=== PATIENT | female | born 1990 | race Caucasian/White ===

== ENCOUNTER 2016-12-26 11:09 | Emergency (ER) | payer OTHER ==
--- NOTE | 2016-12-26 13:34 | ED ---
GI/ HPI - HPI Summary HPI Summary: Patient presents vaginal bleeding that began yesterday without known cause. She took a urine test previously and believes she is approximately 7 weeks . She has noticed some clots in the blood and some cramping and lower back pain. No N/V/D, urinary symptoms, fevers or anorexia. She has two previous pregnancies that were terminated. - History of Current Complaint Chief Complaint: EDVaginalBleeding Time Seen by Provider: 12/26/16 13:15 Stated Complaint: 7 WEEKS PREG SPOTTING , Hx Obtained From: Patient Onset/Duration: Started Days Ago - 1, Atraumatic, Still Present Timing: Constant Severity: Mild Current Severity: Mild Vaginal Bleeding Description: Bright Red Pain Intensity: 3 Location of Pain: Suprapubic Additional Location for Females: Uterus Pain Characteristics: Cramping Pain Radiates to: Back Associated Signs and Symptoms: Positive: Back Pain, Discharge. Negative: Pallor , Dizziness, Weakness, Syncope Additional Signs & Symptoms: Positive: Vaginal Bleeding, Aggravating Factor(s): Nothing Alleviating Factor(s): Nothing - Allergy/Home Medications Allergies/Adverse Reactions: Allergies Allergy/AdvReac Type Severity Reaction Status Date / Time AMOXICILLIN Allergy Hives Uncoded 12/26/16 11:12 PENICILLIN Allergy Unknown Uncoded 12/26/16 11:12 Reaction Details PMH/Surg Hx/FS Hx/Imm Hx Previously Healthy: Yes Infectious Disease History: No Infectious Disease History: Denies: Traveled Outside the [place] in Last 30 Days - Family History Known Family History: Positive: None - Social History Occupation: Employed Part-time Lives: With Family Alcohol Use: Stopped when she knew she was Substance Use Type: Reports: None Smoking Status (MU): Former Smoker Review of Systems Negative: Fever Positive: Abdominal Pain. Negative: Vomiting, Diarrhea, Nausea Positive: no symptoms reported Negative: Weakness All Other Systems Reviewed And Are Negative: Yes Physical Exam Triage Information Reviewed: Yes Vital Signs On Initial Exam: Initial Vitals Temp Pulse Resp BP Pulse Ox 97.9 F 81 15 122/52 100 12/26/16 11:12 12/26/16 11:12 12/26/16 11:12 12/26/16 11:12 12/26/16 11:12 Vital Signs Reviewed: Yes Appearance: Positive: Well-Appearing, No Pain Distress, Obese Skin: Positive: Warm, Skin Color Reflects Adequate Perfusion, Dry, Soft Head/Face: Positive: Normal Head/Face Inspection Eyes: Positive: EOMI, RAMESH, Conjunctiva Clear ENT: Positive: Hearing grossly normal Neck: Positive: Supple, Nontender Respiratory/Lung Sounds: Positive: Clear to Auscultation, Breath Sounds Present Cardiovascular: Positive: RRR Abdomen Description: Positive: Soft. Negative: Nontender - suprapubic discomfort to palpation, CVA Tenderness (R), CVA Tenderness (L), Distended, Guarding Bowel Sounds: Positive: Present Musculoskeletal: Negative: Edema Left, Edema Right Neurological: Positive: Sensory/Motor Intact, Alert, Oriented to Person Place, Time, NV Bundle Intact Distally, Normal Gait Psychiatric: Positive: Affect/Mood Appropriate AVPU Assessment: Alert - Frank Coma Scale Coma Scale Total: 14 Diagnostics - Vital Signs Vital Signs Temp Pulse Resp BP Pulse Ox 12/26/16 11:12 97.9 F 81 15 122/52 100 - Laboratory Result Diagrams: 12/26/16 13:30 Lab Statement: Any lab studies that have been ordered have been reviewed, and results considered in the medical decision making process. - Ultrasound No standard instances Ultrasound Interpretation: Positive (See Comments) Ultrasound Interpretation Completed By: Radiologist - Gestational sac corresponding to 5 week, 1 day GIGU Course/Dx - Diagnoses Differential Diagnoses - Female: Ectopic , Incomplete , , Pelvic Inflammatory Disease, Placenta Abruption, Retained Foreign Body, Threatened , Urinary Tract Infection Provider Diagnoses: Threatened Discharge - Discharge Plan Condition: Stable Disposition: HOME Patient Education Materials: Threatened Miscarriage (ED) Referrals: Alma Kinsey MD [Primary Care Provider] - Additional Instructions: Please follow-up with Dr. Kinsey in 2-3 days for repeat blood work and evaluation. Drink extra fluids. Return to the emergency department if symptoms worsen.
[2016-12-26 13:40] LABS: Hematocrit 40 % (35-47); Hemoglobin 13.3 g/dl (12.0-16.0); Mean Corpuscular HGB Conc 33 g/dl (31-36); Mean Corpuscular Hemoglobin 30 pg (27-31); Mean Corpuscular Volume 92 fL (80-97); Mean Platelet Volume 7 um3 (7.4-10.4); Red Blood Count 4.39 10^6/ul (4.0-5.4); Red Cell Distribution Width 13 % (10.5-15); White Blood Count 6.2 10^3/ul (3.5-10.8)
--- NOTE | 2016-12-26 14:32 | RAD ---
Indication: with vaginal bleeding. Real-time sonography of the was performed. There appears to be thickening of the endometrium with suggestion of a intrauterine gestational sac with a mean sac size of 6 mm. This corresponds to gestational age of 5 weeks 1 day. A structure resembling a pole is not definitively identified although a structure resembling the yolk sac is present. No movement or heart activity is noted. Right ovary measures 3.1 x 1.8 x 2.8 cm. Left ovary measures 2.1 x 1.1 x 2.4 cm. Doppler interrogation demonstrates flow in both ovaries. Likely corpus luteum cyst is noted in the right. IMPRESSION: Thickened endometrium with suggestion of intrauterine gestational sac with a mean diameter of 6 mm corresponding to gestational age of 5 weeks 1 day. A structure resembling a yolk sac is identified. This may be due to early or blighted ovum. Clinical correlation and follow-up with serial quantitative hCG is suggested.
[2016-12-26 16:00] VITALS: BP 120/58
== END 2016-12-26 15:10 | disposition home or self-care (01) ==
LOC: ED 11:09
DX: O20.0 Threatened abortion (principal); Z3A.01 Less than 8 weeks gestation of pregnancy; Z87.891 Personal history of nicotine dependence
CPT/HCPCS: 36415; 76817; 84702; 85025; 86900; 86901; 99282

== ENCOUNTER 2017-05-03 22:28 | Emergency (ER) | payer OTHER ==
[2017-05-03 22:32] VITALS: BP 130/76
--- NOTE | 2017-05-04 00:01 | ED ---
Back Pain - HPI Summary HPI Summary: 27F presents with back pain today s/p falling down stairs. She states she struck the left side of her back. She is still able to ambulate with pain. She denies any pain or numbness or tingling down the leg. She denies any other injury. She denies any loss of bowel or bladder or saddle anaesthesia. She took a dose of aleve for pain which helped. She states she is having muscle spasms of her back. She denies any fever. She denies any history of back pain. - History of Current Complaint Chief Complaint: EDBackInjuryPain Stated Complaint: BACK PAIN Time Seen by Provider: 05/03/17 23:58 Pain Intensity: 6 - Allergies/Home Medications Allergies/Adverse Reactions: Allergies Allergy/AdvReac Type Severity Reaction Status Date / Time AMOXICILLIN Allergy Hives Uncoded 12/26/16 11:12 PENICILLIN Allergy Unknown Uncoded 12/26/16 11:12 Reaction Details PMH/Surg Hx/FS Hx/Imm Hx Endocrine/Hematology History: Denies: Hx Anticoagulant Therapy Cardiovascular History: Denies: Hx Hypertension Infectious Disease History: No Infectious Disease History: Denies: Traveled Outside the [place] in Last 30 Days - Family History Known Family History: Positive: None Negative: Cardiac Disease - Social History Alcohol Use: Stopped when she knew she was Substance Use Type: Reports: None Smoking Status (MU): Former Smoker Review of Systems Negative: Fever Negative: Chest Pain Negative: Shortness Of Breath Positive: Myalgia - back pain All Other Systems Reviewed And Are Negative: Yes Physical Exam Triage Information Reviewed: Yes Vital Signs On Initial Exam: Initial Vitals Temp Pulse Resp BP Pulse Ox 97.2 F 66 18 130/76 97 05/03/17 22:31 05/03/17 22:31 05/03/17 22:31 05/03/17 22:31 05/03/17 22:31 Vital Signs Reviewed: Yes Appearance: Positive: Well-Appearing Skin: Positive: Warm, Dry Head/Face: Positive: Normal Head/Face Inspection Eyes: Positive: Normal, Conjunctiva Clear Respiratory/Lung Sounds: Positive: Clear to Auscultation, Breath Sounds Present Cardiovascular: Positive: Normal, RRR Musculoskeletal: Positive: Limited @ - back due to pain, Other - no midline tenderness, tender on left side of lower back, neg SLR Diagnostics - Vital Signs Vital Signs Temp Pulse Resp BP Pulse Ox 05/03/17 22:31 97.2 F 66 18 130/76 97 - Laboratory Lab Statement: Any lab studies that have been ordered have been reviewed, and results considered in the medical decision making process. Back Pain Course/Dx - Course Course Of Treatment: 27F presents with back pain today s/p falling down stairs. She states she struck the left side of her back. She is still able to ambulate with pain. She denies any pain or numbness or tingling down the leg. She denies any other injury. on exam no midline tenderenss, tender on left side of back. neg SLR. xray read as normal be me. will treat with flexeril as patient states is having muscle spasms. patient understands and agrees with plan. - Diagnoses Differential Diagnosis/HQI/PQRI: Positive: Herniated Disc, Strain, Sprain Provider Diagnoses: Back pain Discharge - Discharge Plan Condition: Good Disposition: HOME Prescriptions: Cyclobenzaprine TAB* [Flexeril 10 MG TAB*] 10 mg PO TID PRN #9 tab PRN Reason: Pain Patient Education Materials: Back Pain (ED) Forms: *Work Release Referrals: lAma Kinsey MD [Primary Care Provider] - Additional Instructions: Take muscle relaxers three times a day for 3 days Use ibuprofen or Tylenol for pain every 6 hours ice/heat area, move as much as possible Follow up with primary within 5 days Return to ED if develop any new or worsening symptoms
[2017-05-04] MEDS ORDERED: Cyclobenzaprine TAB* 10 MG PO ONE (00:11)
--- NOTE | 2017-05-04 07:51 | RAD ---
INDICATION: Trauma, back pain. COMPARISON: There are no prior studies available for comparison. TECHNIQUE: 5 views of the lumbar spine were obtained including lateral, oblique, AP and a coned-down lateral view of the lumbar sacral junction. FINDINGS: The vertebra are in normal alignment. No fracture is seen. Disc spaces appear maintained. IMPRESSION: NO EVIDENCE FOR FRACTURE OR SUBLUXATION.
== END 2017-05-04 00:23 | disposition home or self-care (01) ==
LOC: ED 22:28
DX: M54.9 Dorsalgia, unspecified (principal); Z91.81 History of falling
CPT/HCPCS: 72110; 99282; A9270-GY